=== PATIENT | female | born 1960 | race Caucasian/White ===

== ENCOUNTER 2018-06-18 09:38 | Outpatient (AMBR) | payer MEDICAID, SELFPAY ==
--- NOTE | 2018-06-18 14:19 | PT.ODAYNRPT ---
PT Outpatient Daily Note Date of Service: June 18, 2018 OP Daily Note Pediatric or Adult Patient: Adult PT >13 Visit Reasons: low back Outpatient Physical Therapy Treatment Date: 06/18/18 Subjective: I did a lot of yard work yesterday, I was hurting all over today especially my back. Objective: Pls see FS Assessment: Patient were given hmp with estim on low back. Patient feels good after application of modalities. Patient were given strengthening ex on low back., SLR, pelvic tilt, SLR. Patient has no increase in pain after therapy session. Plan: to continue POC toward goals Pain Present Currently: Yes Length of Time (minutes) of Treatment: 30 Minutes
== END 2018-06-18 10:25 | disposition home or self-care (01) ==
LOC: HODPTST 09:40
PROVIDERS: PCP Physician Assistant; Referring Provider Physician Assistant; Visit Provider Physical Medicine & Rehabilitation Pain Medicine
DX: M54.6 Pain in thoracic spine (principal); R53.1 Weakness
CPT/HCPCS: 97014; 97110; G0283

== ENCOUNTER 2018-10-05 09:34 | Outpatient (AMBR) | payer MEDICAID, SELFPAY ==
--- NOTE | 2018-10-05 10:22 | PT.ODAYNRPT ---
PT Outpatient Daily Note Date of Service: October 05, 2018 OP Daily Note Pediatric or Adult Patient: Adult PT >13 Visit Reasons: back pain Outpatient Physical Therapy Treatment Date: 10/05/18 Subjective: LBP with radiculopathy on her Objective: Pls see FS Assessment: Patient were given HMP with estim with STM on her gluteal area. Verbal consent was given by patient prior to therapy. Educated the patient what are to be expected with therapy especially with the manual therapy. Patient agreed. STM mobilization only were done with gentle passive stretching of the lower back and flexion exercise were given. Patient has muscle tightness and requires restbreaks. If there is trigger of increase in pain, this therapist modifies the treatment. Plan: To continue POC toward goals. Pain Present Currently: Yes Length of Time (minutes) of Treatment: 30 Minutes
== END 2018-10-24 23:59 | disposition home or self-care (01) ==
PROVIDERS: PCP Physician Assistant; Referring Provider Physician Assistant; Visit Provider Physical Medicine & Rehabilitation Pain Medicine
DX: M54.6 Pain in thoracic spine (principal); M54.5 Low back pain; G89.29 Other chronic pain; R26.2 Difficulty in walking, not elsewhere classified; R53.1 Weakness
CPT/HCPCS: 97110